=== PATIENT | male | born 1950 | race Caucasian/White ===

== ENCOUNTER 2023-01-23 09:14 | Day surgery (SDC) | payer OTHER ==
[2023-01-23 09:39] LABS: Potassium 4.5 mEq/L (3.5-5.1)
[2023-01-23] MEDS ORDERED: Ringers Lactate 1,000 ML IV ONE (09:54)
[2023-01-23] MEDS ORDERED: CEFAZOLIN SODIUM 2 GM/VIAL ONE (09:54)
[2023-01-23] MEDS ORDERED: ONDANSETRON 4 MG/2 ML VIAL ONE (12:27)
[2023-01-23] MEDS ORDERED: LIDOCAINE 2% MPF 5 ML VIAL ONE (12:27)
[2023-01-23] MEDS ORDERED: dexAMETHasone 10 MG/ML VIAL ONE (12:27)
[2023-01-23] MEDS ORDERED: FENTANYL CITR 100 MCG/2 ML ONE (12:27)
[2023-01-23] MEDS ORDERED: propofoL 200 MG/20 ML VIAL IV ONE (12:27)
--- NOTE | 2023-01-23 12:34 | EKG ---
Test Date: 2023-01-23 Test Time: 09:06:27 Sql Application Developer: SCOTTY MEASUREMENT RESULTS: Intervals: Rate: 52 RI: 186 QRSD: 102 QT: 406 QTc: 377 [place]: P: 55 RI: 186 QRS: 39 T: 33 INTERPRETIVE STATEMENTS: Sinus bradycardia Otherwise normal ECG No previous ECG available for comparison Electronically Signed On 01-23-23 12:33:57 CDT by Mac Caldera
[2023-01-23] MEDS ORDERED: BUPIVACAINE 0.25% PF 30 ML VIAL ONE (13:06)
[2023-01-23] MEDS ORDERED: METHYLENE BLUE 0.5% 10 ML AMP ONE (14:03)
--- NOTE | 2023-01-23 14:35 | P.OP ---
Preoperative diagnosis: Perianal Fistula with Abscess Postoperative diagnosis: Perianal Fistula with Abscess Primary procedure: Exam under anesthesia, drainage of perirectal abscess Secondary procedure: Placement of seton Anesthesia: GETA + Local Estimated blood loss: <10cc Specimen: debridement tissue Findings: RIGHT perirectal abscess with fistula - transphincteric Complications: None () Implants: seton placed Transferred to: Recovery Room Condition: Good
[2023-01-23 15:04] VITALS: O2SAT 98
[2023-01-23 16:11] VITALS: BP 145/73; TEMP 97
--- NOTE | 2023-01-24 01:49 | OP ---
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 Postoperative Diagnoses: Perianal fistula with abscess with perirectal abscess. Procedures Performed: 1.Exam under anesthesia. 2.Drainage of perirectal cyst/abscess. 3.Placement of a seton through perirectal fistula. Anesthesia: General endotracheal plus local with 0.25% Marcaine. Estimated Blood Loss: Less than 10 cc. Specimen: Debridement tissue. Findings: Right perirectal abscess with fistula was noted, appeared to be transsphincteric. Complications: None. Implant: Seton was placed as an implant. Disposition: The patient was transferred to recovery room in good condition. Procedure In Detail: After informed consent was obtained, patient was brought to the operating room, prepped and draped in the usual sterile fashion after adequate anesthesia was achieved. The patient remained in lithotomy position. I then palpated the area of the right perirectal tissue down and fe lt that there was a fullness in the area. I injected the area with methylene blue using a 24 Angioca th into the draining fluid collection, which was clear at this point without any obvious c lear at this time. I then placed an anoscope into the anal cavity. No spillage of blue was apprecia kami at the exit site. Upon inspection, a significant amount of blue dye from methylene blue injectio n was noted in the rectal vault through a posterolateral draining fistulous tract. At this point, I enlarged the anoscope to a larger bore anoscope to better visualize this. I palpated the area of gen e emanating from the fistulous tract and found it to be at the entrance sphincteric position. At thi s point, I opened the fistulous tract using a 15 blade down through subcutaneous tissues, drained all the fluid out, removed all nonviable tissue with sharp debridement using Metzenbaum scissors. I the n used a lacrimal probe to probe the tract gently until I found the actual exit site. At this point, a probe was used to pass a red rubber seton through this. At this point, the area was copiously irr igated and I secured the seton with interrupted 0 silk sutures. At this point, I irrigated the area once again. No additional hemostatic measures required. I then placed additional anesthetic in the area, 10 cc of 0.25% Marcaine. I then packed the wound with Vashe soaked quarter-inch packing and a sterile dressing placed over top. Patient tolerated the procedure well without evidence of complicat ion and transferred to PACU in good condition. All counts were correct at the end of the case. FLORECITA/ZOYA Voice ID: [id number] Report ID: [id number]
== END 2023-01-23 15:58 | disposition home or self-care (01) ==
LOC: OR 09:14
PROVIDERS: ATTEND Surgery
PROC: 0DHP7DZ Insertion of Intraluminal Device into Rectum, Via Natural or Artificial Opening (ICD-10-PCS; 2023-01-23)
PROC: 0WJM0ZZ Inspection of Male Perineum, Open Approach (ICD-10-PCS; principal; 2023-01-23 13:30)
DX: K60.5 Anorectal fistula (principal); K62.89 Other specified diseases of anus and rectum
CPT/HCPCS: 46050; 46020; 93005; 80048; 36415; J2704; J2001; J3010; J1100; J2405; J7120; 88304